=== PATIENT | female | born 1965 | race Caucasian/White ===

== ENCOUNTER → 2020-05-17 | Outpatient (CLI) | payer OTHER ==
--- NOTE | 2020-05-17 16:08 | RAD ---
Examination: Ultrasound abdomen complete HISTORY: History of menorrhagia, premenopausal COMPARISON: None available FINDINGS: The uterus measures 9.6 x 4.2 x 4.4 cm. The endometrium measures 6.4 mm in thickness. There is mild echogenicity identified within the endometrium could be blood. The right ovary could not be identified. Left ovary measures 4.5 x 3.0 x 2.5 cm. There is a complex cystic structure measuring 4.5 x 2.5 x 3.0 cm, identified in the left ovary/adnexal region without evidence of flow within and containing layering of echogenicity within could be a hemorrhagic cyst. IMPRESSION: 1. A 4.5 cm complex cystic structure identified in the left ovary/adnexal region without evidence of blood flow within and containing layering of echogenicity within could be a hemorrhagic cyst. Consider close interval follow-up examination or MRI for further evaluation. Electronically signed by: Juan Keita MD (05/17/2020 4:05 PM) [id number]
== END | disposition home or self-care (01) ==
LOC: US 13:22
PROVIDERS: ATTEND Nurse Practitioner Family
DX: N92.4 Excessive bleeding in the premenopausal period (principal); N83.202 Unspecified ovarian cyst, left side
CPT/HCPCS: 76830; 76856

== ENCOUNTER → 2020-06-21 | Outpatient (CLI) | payer OTHER ==
[2020-06-21 13:30] LABS: BASO # 0.1 x10^3/uL (0.0-0.2); BASO % 1 % (0-3); EOS # 0.3 x10^3/uL (0.0-0.7); EOS % 3 % (0-3); HEMATOCRIT 44.8 % (36.0-47.0); HEMOGLOBIN 15.1 g/dL (12.0-15.5); LYMPH # 2.6 x10^3/uL (1.0-4.8); LYMPH % 31 % (24-48); MEAN CORPUSCULAR HEMOGLOBIN 31 pg (25-35); MEAN CORPUSCULAR HGB CONC 34 g/dL (31-37); MEAN CORPUSCULAR VOLUME 90 fL (79-100); MONO # 0.7 x10^3/uL (0.0-1.1); MONO % 8 % (0-9); NEUT # 4.8 x10^3/uL (1.8-7.7); NEUT % 57 % (31-73); PLATELET COUNT 256 x10^3/uL (140-400); RED BLOOD COUNT 4.96 x10^6/uL (3.50-5.40); RED CELL DISTRIBUTION WIDTH 14.2 % (11.5-14.5); WHITE BLOOD COUNT 8.5 x10^3/uL (4.0-11.0)
--- NOTE | 2020-06-21 13:33 | EKG ---
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
[2020-06-21 13:48] LABS: ALBUMIN 3.6 g/dL (3.4-5.0); ALBUMIN/GLOBULIN RATIO 0.9 (1.0-1.7); CREATININE 0.7 mg/dL (0.6-1.0); GFR 87.9; POTASSIUM 4.3 mmol/L (3.5-5.1); TOTAL BILIRUBIN 0.3 mg/dL (0.2-1.0); TOTAL PROTEIN 7.6 g/dL (6.4-8.2)
--- NOTE | 2020-06-21 16:24 | RAD ---
INDICATION: Reason: PRE OP: HYSTERECTOMY SCHEDULED 06/26. Instructions: / History: COMPARISON: None. FINDINGS: 2 view of chest obtained. No definite focal airspace consolidation. Cardiac silhouette is unremarkable. Calcific atherosclerosis. IMPRESSION: * No focal airspace consolidation or edema. Electronically signed by: Rachid Georges MD (06/21/2020 4:21 PM) [id number]
== END | disposition home or self-care (01) ==
LOC: SURGPAT 12:39
PROVIDERS: ATTEND Obstetrics & Gynecology
DX: Z01.812 Encounter for preprocedural laboratory examination (principal); I25.10 Atherosclerotic heart disease of native coronary artery without angina pectoris; R10.2 Pelvic and perineal pain; F17.210 Nicotine dependence, cigarettes, uncomplicated; Z20.828 Contact with and (suspected) exposure to other viral communicable diseases
CPT/HCPCS: 36415; 71046; 80053; 85025; 93005; U0003

== ENCOUNTER 2020-06-26 08:07 | Observation (INO) | payer OTHER ==
[~2020-06-26] VITALS: Ht 162.6 cm; Wt 117.0 kg
[2020-06-26] VITALS (10 sets, daily range): BP systolic 98–137; BP diastolic 64–81
[~2020-06-26 08:07] MED LIST: HYDROmorphone 2 MG/ML VIAL IV PRN; IV RINGERS,LACTATED 1000ML 1,000 ML IV SCH; MORPHINE SULFATE 2 MG/ML VIAL. IV PRN; ONDANSETRON PF 4 MG/2 ML VIAL. IV PRN; PROCHLORPERAZINE 10 MG/2 ML VIAL. IV PRN; fentaNYL PF VIAL 100 MCG/2 ML VIAL IV PRN
[2020-06-26] MEDS ORDERED: ROCURONIUM 50 MG/5 ML VIAL. ONE (08:30)
[2020-06-26] MEDS ORDERED: PROPOFOL 10 MG/ML (20ML) VIAL. IV ONE (08:30)
[2020-06-26] MEDS ORDERED: LIDOCAINE 2% PF 5 ML VIAL. ONE (08:30)
[2020-06-26] MEDS ORDERED: SUCCINYLCHOLINE 200 MG/10 ML VIAL. ONE (08:30)
[2020-06-26] MEDS ORDERED: fentaNYL PF VIAL 100 MCG/2 ML VIAL ONE ×3 (08:30→12:26)
[2020-06-26] MEDS ORDERED: ESTROGENS, CONJ VAGINAL CREAM 30GM TUBE. ONE (08:59)
[2020-06-26] MEDS ORDERED: INDIGOTINDISULFONATE SODIUM 40 MG/5 ML AMPUL. ONE (08:59)
[2020-06-26] MEDS ORDERED: 0.9 % SODIUM CHLORIDE 20 ML VIAL. IJ ONE (09:13)
[2020-06-26] MEDS ORDERED: BUPIVACAINE-EPI 0.25%-1:200000 MPF 30 ML VIAL. INJ ONE (09:15)
[2020-06-26] MEDS ORDERED: DEXAMETHASONE SOD PHOS 4 MG/ML VIAL ONE (09:52)
[2020-06-26] MEDS ORDERED: DESFLURANE 61 TO 120 MINUTES IH ONE (09:52)
[2020-06-26] MEDS ORDERED: PHENYLEPHRINE in 0.9% NACL PF 1 MG/10 ML SYRINGE. IV ONE (09:56)
[2020-06-26] MEDS ORDERED: ONDANSETRON PF 4 MG/2 ML VIAL. ONE (10:37)
[2020-06-26] MEDS ORDERED: NEOSTIGMINE METHYLSULFATE 5 MG/5 ML SYRINGE. ONE (10:52)
[2020-06-26] MEDS ORDERED: GLYCOPYRROLATE 1 MG/5 ML VIAL. ONE (10:53)
--- NOTE | 2020-06-26 12:03 | PDOC ---
BRIEF OPERATIVE NOTE Date: Jun 26, 2020 Pre-Op Diagnosis menorrhagia, dysmenorrhea, irreg menses Post-Op Diagnosis same Procedure Performed LAVH/BSO Surgeon Dr. Gordon Education Coordinator Oscar CABALLERO Anesthesiologist Dr. Figueroa Anesthesia Type: General Blood Loss 50cc IV Fluid 1L Urine Output 300cc clear via hutchinson Specimens Obtained cervix, uterus, bilateral tubes and ovaries Findings mildly enlarged RV uterus, normal bilateral tubes and ovaries, mild left sided adhesions near left IP ligament (not touched except a few on the left round ligament) Complications none Operative Note [id number] ELISE GORDON MD Jun 26, 2020 12:03
[2020-06-26] MEDS ORDERED: diphenhydrAMINE HCL 25 MG CAPSULE PO PRN (12:15)
[2020-06-26] MEDS ORDERED: LACTULOSE 20 GM/30 ML SOLUTION. PO PRN (12:15)
[2020-06-26] MEDS ORDERED: HYDROcodone/APAP 5/325MG 1 TAB TABLET PO PRN (12:15)
[2020-06-26] MEDS ORDERED: ONDANSETRON PF 4 MG/2 ML VIAL. IV PRN (12:15)
[2020-06-26] MEDS ORDERED: NALOXONE 0.4 MG/ML VIAL. IV PRN (12:15)
[2020-06-26] MEDS ORDERED: 0.9 % SODIUM CHLORIDE 10 ML DISP.SYRIN. IV PRN (12:15)
[2020-06-26] MEDS ORDERED: CALCIUM CARBONATE 500 MG TAB.CHEW PO PRN (12:15)
[2020-06-26] MEDS ORDERED: MAG HYDROX/ALUMINUM HYD/SIMETH 30 ML ORAL.SUSP PO PRN (12:15)
[2020-06-26] MEDS ORDERED: diphenhydrAMINE 50 MG/ML VIAL IV PRN (12:15)
[2020-06-26] MEDS ORDERED: ZOLPIDEM 5 MG TABLET. PO PRN (12:15)
[2020-06-26] MEDS ORDERED: MORPHINE SULFATE 2 MG/ML VIAL. IV PRN (12:15)
[2020-06-26] MEDS ORDERED: MAGNESIUM HYDROXIDE 2,400 MG/30 ML ORAL.SUSP. PO PRN (12:15)
[2020-06-26] MEDS: fentaNYL PF VIAL 100 MCG/2 ML VIAL IV PRN ×2 (12:33→12:44)
--- NOTE | 2020-06-26 14:00 | OP ---
DATE OF SURGERY: 06/26/2020 PREOPERATIVE DIAGNOSES: Menorrhagia, dysmenorrhea, irregular periods, pelvic pain. POSTOPERATIVE DIAGNOSES: Menorrhagia, dysmenorrhea, irregular periods, pelvic pain. PROCEDURE: Laparoscopic-assisted vaginal hysterectomy, bilateral salpingo-oophorectomy. SURGEON: Elise Gordon MD GRAIN PACKER: EFDERICO Moore ANESTHESIOLOGIST: Nick Figueroa MD ANESTHESIA: General. ESTIMATED BLOOD LOSS: 50 mL. URINE OUTPUT: 300 mL clear via Carmona catheter. IV FLUIDS: 1 liter of Crystalloid. SPECIMENS: Cervix, uterus, bilateral tubes and ovaries. FINDINGS: A mildly enlarged retroverted uterus, normal bilateral tubes and ovaries, mild left-sided adhesions near the left round ligament and IP ligament. These were mainly left alone. I just took down a few near the left round ligament, so I could retract the bowel and see the IP ligament clearly to identify the ureter below it. She had a grossly normal right upper quadrant and grossly normal bowel. COMPLICATIONS: None. DESCRIPTION OF PROCEDURE: This patient was taken to the operating room where general anesthesia was placed. The patient was placed in dorsal lithotomy position in [facility]. The patient's abdomen and vagina were both prepped and draped in the normal sterile fashion and a Carmona catheter had been inserted under sterile technique. Upon my arrival, a timeout was performed. Once everyone agreed on the patient, the site, the procedure, the antibiotics, the procedure was initiated. A bivalve speculum was then placed in the patient's vagina. A single-tooth tenaculum was used to grasp the anterior lip of the cervix. A 10 mL of 0.25% Marcaine with epinephrine was used to circumferentially inject around the cervix for both hemodissection and hemostatic purposes later. The Valtchev uterine manipulator was placed through the endocervical os, locked on the single tooth tenaculum and the bivalve speculum was then removed. Top gloves were discarded and changed. Attention was then turned to the abdomen where a small supraumbilical skin incision was made with curved Ludmila was used to dissect through the subcuticular layer to the fascia. The 5 mm Visiport was used to directly into the abdominal cavity. Opening patient pressure was 3-4 mmHg. Carbon dioxide gas was used to then appropriately insufflate the abdominal cavity to maintain a pressure of 15 mmHg. The patient was placed in Trendelenburg position. There were no anterior abdominal wall adhesions. I did inject supraumbilically before making that incision and placing that trocar, so we used 10 below and 10 above So, the right and left lower quadrant ports were placed after transilluminating the abdominal wall, finding an area clear of any vasculature, injecting with 0.25% Marcaine, making a small incision and placing it in under direct visualization. A 4-5 mL of air was placed in the trocar cuff. Once this was done, the camera was moved laterally and a 4-5 mL of air was placed in the umbilical ____ as well once I saw it. Once this was done, she was in Trendelenburg, the left tube and ovary. I did have to just barely take down some of the omental fat so I could see that and pull up the left tube and ovary, but I was able to find the ureter coursing low, and watching it peristalsed deep in the pelvis well above where we were going. So pulling the tube and ovary out going right below the ovary, taking the left tube and ovary per patient request, cauterizing and cutting with the LigaSure, then crossing the left round ligament as well. This was done exactly the same on the right, but there were no adhesions. Right tube and ovary were normal, finding the ureter coursing low, staying high on the right infundibulopelvic ligament, cauterizing and cutting, staying under the ovary, going over towards the uterus and crossing the right round ligament as well, taking the right tube and ovary. Once this was done, the bladder flap was created sharply pushing the uterus cephalad, elevating the bladder flap with the [place] and using the monopolar hook to cut across and then peel down the bladder anteriorly. The uterine vessels were obtained on the right side and staying inside this, taking small bites down to the level of the uterosacrals, hugging the posterior cervix, and then crossing contralaterally and using the LigaSure to stay inside that round pedicle, right on the uterus going down through the cardinal and broad ligaments to the uterosacrals. The posterior uterus was completely free, it was now blanched. The blood supply was obtained. The bladder was down, so all instruments were removed from the abdomen and attention was turned vaginally. The single tooth and Valtchev were removed. A weighted speculum was placed in the patient's vagina. Thyroid Shant clamps were placed on the anterior and posterior lips of the cervix respectively. A scalpel was used to make a circumferential incision in the cervix. An open Ray-Julienne 4 x 4 was used to gently push up the anterior bladder peritoneum and the anterior cul-de-sac was digitally and bluntly entered. The Ray-Julienne was removed and passed off and the curved Shailesh was placed in the anterior cul-de-sac. The cervix was elevated and the posterior cul-de-sac was sharply entered with the curved Moseley scissors. A #0 Vicryl stitch was used to secure the posterior peritoneum here to the vaginal cuff. It was tagged with a curved Ludmila clamp and the needle was cut and passed off. The short weighted speculum was removed and replaced with the long weighted Arpit speculum in the posterior cul-de-sac. Curved Nanda clamps x 2 were placed on the patient's left uterosacral ligament where they were doubly clamped with curved Heaneys, cut with curved Moseley scissors and suture ligated x 2 with 0 Vicryl. Second one was taken through the vaginal cuff securing uterosacral ligament to the vaginal cuff, tagging it with a straight Ludmila clamp and cutting and passing the needle off. This was done exactly the same on the right side, double clamping the uterosacrals with curved Nanda's, cutting with curved Moseley scissors, suture ligating x 2 with 0 Vicryl, taking the second one through the vaginal cuff, tagging it with a straight Ludmila clamp and cutting and passing the needle off. The remaining pedicle on both sides were delineated with the curved mixture, the right angle clamp. The vaginal LigaSure was used to cauterize and cut the remaining pedicles on both sides. Cervix, uterus, bilateral tubes and ovaries were delivered in total and passed off for permanent pathology. A sponge stick was used to examine the pedicles. Once the pedicles were assured to be dry the long Arpit speculum was removed and replaced with the short weighted vaginal speculum. A long Allis was used to grasp the anterior bladder peritoneum and 2-0 Vicryl was taken through the anterior bladder peritoneum, left uterosacral ligament, posterior peritoneum and right uterosacral ligament, thus closing the peritoneum in a pursestring like fashion. Once this was done, the right and left uterosacral tags were clipped. The cuff was closed in a running locked fashion and tied to that posterior cuff tag. One imbricating interrupted stitch was placed as well just for hemostasis and strength. Once this was done, it was completely hemostatic. All instruments had been correct by OR personnel x 2 below. All gloves were discarded and changed and attention was turned back above for a second look. The patient was placed back in Trendelenburg. Gas was reinsufflated, overhead lights were dimmed and a look revealed complete hemostasis. Tisseel was placed over the cuff with excellent results. The right and left lower quadrant ports, the gas was deflated from these. They were removed under direct visualization. The gas was taken out or the 4-5 mL of air was taken out of the cuff . They were removed under direct visualization. They were all hemostatic. The pericolic gutters were clear. The cul-de-sac remained dry, so the umbilical port, the gas was removed from it as well or the 4-5 mL of air. The gas was released from the abdomen from this one and then it was removed as well. All three port sites were closed with 4-0 nylon at the skin. At this point, the procedure was ended. She was then awakened from anesthesia and brought to recovery room in stable condition. ELISE GORDON MD DR: LUPILLO/keisha JOB#: [id number] / [id number]
--- NOTE | 2020-06-26 15:48 | NUR ---
Patient sleeping 02 86% RA. 2L O2 placed on patient and IS brought to room. 02 95% 2L, will continue to monitor. Addendum: 06/26/20 at 1622 by JERRELL NEWTON RN Amended: Links added.
[2020-06-26] MEDS: oxyCODONE/APAP 5/325 1 TAB TABLET PO PRN (16:45)
[2020-06-26] MEDS: SIMETHICONE 80 MG TAB.CHEW PO PRN (16:45)
[2020-06-26] MEDS ORDERED: KETOROLAC 30 MG/ML VIAL. IVP PRN (19:00)
[2020-06-27 02:07] VITALS: BP 115/71
[2020-06-27] MEDS: oxyCODONE/APAP 5/325 1 TAB TABLET PO PRN (05:43)
[2020-06-27 05:45] VITALS: BP 126/79
[2020-06-27 07:39] LABS: CALCIUM 8.5 mg/dL (8.5-10.1); CREATININE 0.6 mg/dL (0.6-1.0); POTASSIUM 4.2 mmol/L (3.5-5.1)
[2020-06-27] MEDS: SIMETHICONE 80 MG TAB.CHEW PO PRN (08:10)
--- NOTE | 2020-06-27 09:08 | PDOC ---
SURGICAL PROGRESS NOTE DATE: 06/27/20 TIME: 09:06 Subjective Doing well with minimal complaints. Scant VB, tolerating regular diet, ambulating well, voiding without catheter. Minimal pain and wants to go home. Up in chair eating breakfast upon exam this am Vital Signs Vital Signs Date Time Temp Pulse Resp B/P (MAP) Pulse Ox O2 Delivery O2 Flow Rate FiO2 06/27/20 06:43 14 Room Air 06/27/20 05:45 98.1 80 126/79 (95) 93 98.1 06/26/20 17:23 2.0 I&O Intake and Output 06/27/20 07:00 Intake Total 4850 ml Output Total 1100 ml Balance 3750 ml Intake Oral 1800 ml IV Total 3050 ml Output Urine Total 1050 ml Estimated Blood Loss 50 ml # Voids 6 PATIENT HAS A QIU: No General: Alert, Oriented X3, Cooperative, No acute distress HEENT: Atraumatic Heart: Regular rate Abdomen: Soft, No tenderness, Other (all port sites c/d/i) Extremities: No clubbing, No cyanosis, No edema, No tenderness/swelling Skin: No rashes, No breakdown Neuro: Normal speech Psych/Mental Status: Mental status NL, Mood NL Labs Laboratory Tests Test 06/26/20 08:36 06/27/20 07:00 Bedside Urine HCG, Qualitative Hcg negative (Negative) Hematocrit 40.0 % (36.0-47.0) Sodium Level 142 mmol/L (136-145) Potassium Level 4.2 mmol/L (3.5-5.1) Chloride Level 106 mmol/L (98-107) Carbon Dioxide Level 28 mmol/L (21-32) Anion Gap 8 (6-14) Blood Urea Nitrogen 8 mg/dL (7-20) Creatinine 0.6 mg/dL (0.6-1.0) Estimated GFR (Cockcroft-Gault) 105.0 Glucose Level 107 mg/dL (70-99) Calcium Level 8.5 mg/dL (8.5-10.1) Laboratory Tests Test 06/27/20 07:00 Hematocrit 40.0 % (36.0-47.0) Sodium Level 142 mmol/L (136-145) Potassium Level 4.2 mmol/L (3.5-5.1) Chloride Level 106 mmol/L (98-107) Carbon Dioxide Level 28 mmol/L (21-32) Anion Gap 8 (6-14) Blood Urea Nitrogen 8 mg/dL (7-20) Creatinine 0.6 mg/dL (0.6-1.0) Estimated GFR (Cockcroft-Gault) 105.0 Glucose Level 107 mg/dL (70-99) Calcium Level 8.5 mg/dL (8.5-10.1) I have reviewed the following labs, vitals, nursing Assessment/Plan POD#1 s/p LAVH/BSO Routine PO care d/c to home today NPV x 6 weeks light/limited activity x [address] while on narcotic pain meds keep scheduled follow up with me in one week call or return sooner for any other questions or concerns not limited to but inhcluding pain unrelieved with pain meds, increased or unexplained vaginal bleeding or T>100.4 Justicifation of Admission Dx: Justifications for Admission: Justification of Admission Dx: Yes ELISE RODRIGEZ MD Jun 27, 2020 09:08
--- NOTE | 2020-06-27 09:10 | PDOC3 ---
Discharge Summary Visit Information Date of Admission: Jun 26, 2020 Date of Discharge: Jun 27, 2020 Final Diagnosis Pelvic pain, dysmenorrhea, irreg menses Brief Hospital Course Allergies Allergies Coded Allergies Type Severity Reaction Last Updated Verified No Known Drug Allergies 06/26/20 No Vital Signs Vital Signs Date Time Temp Pulse Resp B/P (MAP) Pulse Ox O2 Delivery O2 Flow Rate FiO2 06/27/20 06:43 14 Room Air 06/27/20 05:45 98.1 80 126/79 (95) 93 98.1 06/26/20 17:23 2.0 Lab Results Laboratory Tests Test 06/26/20 08:36 06/27/20 07:00 Bedside Urine HCG, Qualitative Hcg negative (Negative) Hematocrit 40.0 % (36.0-47.0) Sodium Level 142 mmol/L (136-145) Potassium Level 4.2 mmol/L (3.5-5.1) Chloride Level 106 mmol/L (98-107) Carbon Dioxide Level 28 mmol/L (21-32) Anion Gap 8 (6-14) Blood Urea Nitrogen 8 mg/dL (7-20) Creatinine 0.6 mg/dL (0.6-1.0) Estimated GFR (Cockcroft-Gault) 105.0 Glucose Level 107 mg/dL (70-99) Calcium Level 8.5 mg/dL (8.5-10.1) Laboratory Tests Test 06/27/20 07:00 Hematocrit 40.0 % (36.0-47.0) Sodium Level 142 mmol/L (136-145) Potassium Level 4.2 mmol/L (3.5-5.1) Chloride Level 106 mmol/L (98-107) Carbon Dioxide Level 28 mmol/L (21-32) Anion Gap 8 (6-14) Blood Urea Nitrogen 8 mg/dL (7-20) Creatinine 0.6 mg/dL (0.6-1.0) Estimated GFR (Cockcroft-Gault) 105.0 Glucose Level 107 mg/dL (70-99) Calcium Level 8.5 mg/dL (8.5-10.1) Brief Hospital Course Ms. Jewell is a 54 old female who presented with irregular painful menses desiring definitive therapy. She underwent LAVH/BSO yesterday without complications. She has had an unremarkable postoperative course. She is doing well, tolerating regular diet, voiding without catheter, scant VB and wants to go home. Assessment Assessment POD#1 s/p LAVH/BSO Routine PO care d/c to home today NPV x 6 weeks light/limited activity x [address] while on narcotic pain meds keep scheduled follow up with me in one week call or return sooner for any other questions or concerns not limited to but inhcluding pain unrelieved with pain meds, increased or unexplained vaginal bleeding or T>100.4 Discharge Information Condition at Discharge: Improved Follow Up: Weeks Disposition/Orders: D/C to Home Scheduled Info (No Known Medications Prior To Admisstion) Each, 1 EACH 1X for NA, (Reported) Entered as Reported by: BEAU CLARK on 06/21/20 1303 Patient Instructions Patient Instructions POD#1 s/p LAVH/BSO Routine PO care d/c to home today NPV x 6 weeks light/limited activity x [address] while on narcotic pain meds keep scheduled follow up with me in one week call or return sooner for any other questions or concerns not limited to but inhcluding pain unrelieved with pain meds, increased or unexplained vaginal bleeding or T>100.4 Justicifation of Admission Dx: Justifications for Admission: Justification of Admission Dx: Yes ELISE RODRIGEZ MD Jun 27, 2020 09:10
[2020-06-27 09:30] VITALS: BP 128/85
--- NOTE | 2020-06-27 09:39 | NUR ---
Discharge Discharge and incisional instructions given to patient and her daughter at this time. No questions or concerns noted. Patient left per wheelchair with all her belongings.
--- NOTE | 2020-07-10 15:06 | PATHOLOGY ---
[facility] Accession Number: [id number] . 01 Material submitted: . uterus - BILATERAL TUBES AND OVARIES CERVIX AND UTERUS. Modifiers: bilateral . 01 Clinical history: . PELVIC PAIN MENORRHAGIA AND DYSMENORRHEA LAPASSITED VAGINAL HYSTERECTOMY . 02 Diagnosis: Uterus and attached bilateral fallopian tubes and ovaries, laparoscopic-assisted vaginal hysterectomy with bilateral salpingo-oophorectomy: - Adenomyosis, uterine corpus, nodular, focal (uterine weight 101 grams). - Mild chronic cervicitis with focal squamous metaplasia. - Few small Nabothian cysts, cervix. - Slightly disordered proliferative endometrium. - Paratubal cysts and cystic [place]ard rests of fallopian tubes. - Hemorrhagic cystic follicle showing regressive changes of left ovary. - Right ovary showing no diagnostic abnormalities. . (JPM:mm; 06/28/2020) [facility] 06/28/2020 1319 Local . 02 Comment: There is no atypia or evidence of malignancy. . (JPM:mml; 06/28/2020) . 02 Electronically signed: . Raphael Rosario MD, Pathologist NPI- [id number] . 01 Gross description: . The specimen is received in formalin, labeled "Nubia Jewell, bilateral tubes and ovaries, cervix and uterus" and consists of a 101 g uterus with attached cervix measuring 8.8 x 5.5 x 4.1 cm. Attached is the right 7 g tubo-ovarian complex consisting of a fimbriated fallopian tube measuring 5.0 cm in length and up to 0.5 cm in diameter attached to a 3.1 x 1.6 x 1.2 cm ovary. The left 6 g tubo-ovarian complex consists of a fimbriated fallopian tube measuring 6.7 cm in length and 0.5 cm in diameter attached to a 3.8 x 1.5 x 1.3 cm ovary. The uterine serosa is pink-pruett smooth shiny. The 1.0 cm cervical os is surrounded by pink-pruett ectocervical mucosa. The endocervical canal is corrugated measuring 3.0 cm in length. The endometrial cavity is triangular measuring 4.8 cm in length and 3.2 cm in width lined by an attenuated pruett endometrium measuring less than 0.1 cm. The myometrium is pink-pruett measuring up to 2.8 cm with an ill-defined posterior nodule measuring 1.2 cm. No additional gross lesions identified. . The right fallopian tube and has multiple paratubal cysts ranging between 0.1 and 1.3 cm. The fallopian tube reveals a well-defined lumen. The right ovary reveals no gross lesions. The left fallopian tube has multiple paratubal cysts measuring up to 0.3 cm, and reveals a well defined lumen. The left ovary displays a 0.4 cm hemorrhagic structure and no additional gross lesions. [employer] sections are submitted as follows: . A1: Anterior cervix A2: Posterior cervix A3: Anterior endomyometrium A4: Posterior endomyometrium A5: Possible nodule A6: Right fallopian tube A7: Right ovary A8: Left fallopian tube A9: Left ovary (SDY; 06/27/2020) SYU/SYU 06/28/2020 1314 Local . 02 Pathologist provided ICD-10: N80.0, N72, N87.9, N85.9, N83.8, R10.2, N92.0, N94.6 . 02 CPT . 162604 Performed at: 01 [facility] [address] [facility] [address], [place] [id number] MD Man Cameron MD Phone: [phone] Performed at: 02 [facility] [address] [place], [place] [id number] MD Raphael Rosario MD Phone: [phone]
== END 2020-06-27 10:07 | disposition home or self-care (01) ==
LOC: SURG 08:07 → 3 NORTH 12:04
PROVIDERS: ADMIT Obstetrics & Gynecology; ATTEND Obstetrics & Gynecology
DX: N92.0 Excessive and frequent menstruation with regular cycle (principal); N94.6 Dysmenorrhea, unspecified; N92.6 Irregular menstruation, unspecified; R10.2 Pelvic and perineal pain
CPT/HCPCS: 36415; 58552; 80048; 81025; 85014; 86850; 86900; 86901; 88307; 96374; A7015; G0378; G0379; J0330; J0690; J1100; J1885; J2370; J2405; J2704; J2710; J3010; J3490; J7030; J7120